=== PATIENT | female | born 1995 | race Caucasian/White ===

== ENCOUNTER → 2022-07-27 11:24 | Outpatient (BNVA) | payer OTHER, SELFPAY | PROVIDERS: Visit Provider Internal Medicine | DX: R76.8 Other specified abnormal immunological findings in serum (principal); R53.83 Other fatigue; G47.26 Circadian rhythm sleep disorder, shift work type; M25.50 Pain in unspecified joint | CPT/HCPCS: 80053; 81001; 82533; 82550; 83516; 83735; 84100; 84443; 84550; 85025; 85651; 86003; 86008; 86140; 86160; 86162; 86200; 86235; 86255; 86376; 86431; 86704; 86803; 87340 ==

== ENCOUNTER 2023-10-16 07:13 | Emergency (ER) | payer SELFPAY ==
--- NOTE | 2023-10-16 07:19 | W.ED.LOWEXIN ---
HPI - Extremity Injury (Lower) General: Chief Complaint: Extremity Problem,Nontraumatic Stated Complaint: Leg cramps Time Seen by Provider: 10/16/23 07:18 Source: patient Mode of arrival: ambulatory History of Present Illness: 28-year-old female presents emergency room complaining of leg cramps particularly in her left calf. She is on hydrochlorothiazide she does take potassium supplements as well. She is not recently changed or adjusted any of her medications. No history of DVT. No history of lumbar radiculopathy. Secondarily patient is also complaining of some vaginal discharge and dysuria has been going on for couple of weeks. She has previously had a salpingectomy. She states it was more extensive than typical tubal ligation but that she did not have a previous tubal abscess or ectopic . MD complaint: leg injury Review of Systems Const: Denies: fever(s) or chills Card: Denies: chest pain Resp: Denies: dyspnea GI: Denies: abdominal pain : Denies: dysuria, urinary frequency or urinary urgency Musc: Denies: neck pain or back pain Skin/Breast: Denies: rash PFSH ED PFSH: Medical History ROSALIA positive Social History Smoking and tobacco/nicotine status: never used tobacco/nicotine Alcohol intake: current Physical Exam Const: COMMON NORMALS: no acute distress GENERAL APPEARANCE: cooperative and comfortable ORIENTATION/CONSCIOUSNESS: Yes awake, Yes oriented to person, Yes oriented to place and Yes oriented to time HENMT: COMMON NORMALS: normocephalic, atraumatic and hearing grossly normal bilaterally HEAD & SCALP: normocephalic and atraumatic Resp: COMMON NORMALS: normal respiratory effort, No retractions, No use of accessory muscles and clear to auscultation bilaterally AUSCULTATION: clear to auscultation bilaterally Cardio: COMMON NORMALS: regular rate, regular rhythm and No murmurs present (Cardio) RATE: regular rate RHYTHM: regular rhythm GI: COMMON NORMALS: Soft to palpation and No hepatosplenomegaly present AUSCULTATION: Yes normoactive bowel sounds PALPATION: Yes Soft to palpation, No Tenderness to palpation present (GI), No Guarding due to palpation present (GI) and Yes No hepatosplenomegaly present Extremity: COMMON NORMALS: normal to inspection, capillary refill normal, no clubbing, cyanosis or edema, no calf tenderness and no pedal edema Neuro: SENSORIUM/ORIENTATION: Yes oriented to person, Yes oriented to place and Yes oriented to time Skin: COMMON NORMALS: no rashes or lesions noted GENERAL SKIN EXAM: no rashes or lesions noted Course Vital Signs: Vital signs: Vital Signs Temperature 98.1 F 10/16/23 07:48 Pulse Rate 85 10/16/23 07:48 Respiratory Rate 15 10/16/23 07:48 Blood Pressure 164/110 10/16/23 07:48 Pulse Oximetry 100 10/16/23 07:48 Oxygen Delivery Me thod Room Air 10/16/23 07:48 MDM - Extremity Injury (Lower) Medical Decision Making CBC and CMP did not show significant abnormality. Exam is unremarkable. Wet mount shows clue cells and trichomonas treated with metronidazole. She also has some evidence of cystitis. Will start her on Bactrim as well. 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 Medical Records I reviewed the patient's medical records. Lab Data I reviewed the patient's lab results. 10/16/23 07:32 10/16/23 07:32 Laboratory Results WBC 9.47 10^3/uL (3.29-11.43) 10/16/23 07:32 RBC 4.52 10^6/uL (3.85-5.65) 10/16/23 07:32 Hgb 13.70 g/dL (11.27-16.99) 10/16/23 07:32 Hct 41.3 % (36-47) 10/16/23 07:32 MCV 91.4 fl (85-98) 10/16/23 07:32 MCH 30.3 pg (27-33) 10/16/23 07:32 MCHC 33.2 g/dL (30-55) 10/16/23 07:32 RDW 11.6 % (12.1-15.1) L 10/16/23 07:32 Plt Count 287 10^3/cmm (157-399) 10/16/23 07:32 MPV 9.5 fL (7.4-10.4) 10/16/23 07:32 Neut % (Auto) 58.2 % 10/16/23 07:32 Lymph % (Auto) 34.5 % 10/16/23 07:32 [place] % (Auto) 6.1 % 10/16/23 07:32 Eos % (Auto) 0.4 % 10/16/23 07:32 Baso % (Auto) 0.6 % 10/16/23 07:32 Neut # (Auto) 5.50 10^3/uL (1.8-7.7) 10/16/23 07:32 Lymph # (Auto) 3.3 10^3/uL (0.8-4.8) 10/16/23 07:32 [place] # (Auto) 0.6 10^3/uL (0.2-0.9) 10/16/23 07:32 Eos # (Auto) 0.0 10^3/uL (0.0-0.8) 10/16/23 07:32 Baso # (Auto) 0.1 10^3/uL (0.0-0.1) 10/16/23 07:32 Nucleated RBC % (auto) 0 % 10/16/23 07:32 Nucleated RBCs # 0.0 /100WBC 10/16/23 07:32 Sodium 136 mmol/L (136-145) 10/16/23 07:32 Potassium 3.8 mmol/L (3.5-5.1) 10/16/23 07:32 Chloride 103 mmol/L (98-107) 10/16/23 07:32 Carbon Dioxide 21 mmol/L (22-29) L 10/16/23 07:32 Anion Gap 15.8 (5-19) 10/16/23 07:32 BUN 15 mg/dL (6-20) 10/16/23 07:32 Creatinine 0.7 mg/dL (0.5-0.9) 10/16/23 07:32 GFR Calculation 98.9 mL/min (90-130) 10/16/23 07:32 Glucose 93 mg/dL (65-115) 10/16/23 07:32 Calculated Osmolality 283 mOsm/kg (285-295) L 10/16/23 07:32 Calcium 8.9 mg/dL (8.5-10.5) 10/16/23 07:32 Magnesium 2.0 mg/dL (1.7-2.3) 10/16/23 07:32 Total Bilirubin 0.3 mg/dL (0.15-1.2) 10/16/23 07:32 AST 15 U/L (0-32) 10/16/23 07:32 ALT 18 U/L (0-33) 10/16/23 07:32 Alkaline Phosphatase 73 U/L (35-105) 10/16/23 07:32 Total Protein 7.5 g/dL (6.6-8.7) 10/16/23 07:32 Albumin 4.2 g/dL (3.5-5.2) 10/16/23 07:32 Globulin 3.3 g/dL (1.3-4.6) 10/16/23 07:32 HCG, Qual Negative (Negative) 10/16/23 07:32 Urine Color Yellow (Yellow) 10/16/23 08:03 Urine Appearance Clear (CLEAR) 10/16/23 08:03 Urine pH 7 (5-7) 10/16/23 08:03 Ur Specific [place] 1.020 (1.005-1.030) 10/16/23 08:03 Urine Protein Neg (Negative) 10/16/23 08:03 Urine Glucose (UA) Norm (Normal) 10/16/23 08:03 Urine Ketones Negative (Negative) 10/16/23 08:03 Urine Blood Neg (Negative) 10/16/23 08:03 Urine Nitrate Negative (Negative) 10/16/23 08:03 Urine Bilirubin Neg (Negative) 10/16/23 08:03 Urine Urobilinogen Norm mg/dL (Negative) 10/16/23 08:03 Ur Leukocyte Esterase 2+ (Negative) H 10/16/23 08:03 Urine RBC None /hpf (0-2) 10/16/23 08:03 Urine WBC 5-10 /hpf (0-5) H 10/16/23 08:03 Ur Squamous Epith Cells Rare /hpf (0-5) 10/16/23 08:03 Amorphous Sediment Not Reportable 10/16/23 08:03 Urine Bacteria 1+ /hpf (NONE) H 10/16/23 08:03 Urine Mucus Trace /hpf 10/16/23 08:03 No radiology studies performed this visit Discharge Plan Discharge Patient Disposition: Home Clinical Impression: Cramp in lower leg, Trichomonal vaginitis Condition: Stable Prescriptions: New metronidazole 500 mg tablet 500 mg PO BID 10 Days Qty: 20 0RF Bactrim DS 800-160 mg tablet 1 tab PO BID 10 Days Qty: 20 0RF No Action topiramate 50 mg tablet 50 mg PO ONCE cholecalciferol (vitamin D3) 125 mcg (5,000 unit) capsule 125 mcg PO DAILY hydrochlorothiazide 12.5 mg tablet 12.5 mg PO DAILY vitamin B complex Tablet 1 tab PO DAILY biotin 1 mg capsule 1 mg PO DAILY sumatriptan succinate [Imitrex] 50 mg tablet 50 mg PO Q2H PRN (Reason: Migraine Headache) Rx Instructions: do not exceed 4 doses per 24 hrs Cymbalta 60 mg Capsule,Delayed Release(Dr/Ec) 60 mg PO BID potassium chloride 20 mEq Tablet Extended Release 20 meq PO DAILY Discharge Orders: Discharge ED (Routine); Ordered 10/16/23 Ordered By: Haris Phillip Discharge Diet: Usual diet Discharge Activity: Increase activity as tolerated Patient Instructions: Opioid Safety, Pain Management Activity Restrictions/Additional Instructions: Thank you for choosing [facility] for your healthcare needs today. Please realize this is an emergency room and that we are providing you with a medical screening exam and this may not be complete and all inclusive of all the testing and or work up that you may need to determine your ailment or severity of your illness. It is very important that you follow up as instructed or that you return to the Emergency Department should you have concerns or if your condition changes or worsens in any way. You are seen today for complaints of leg cramping your electrolytes were normal there is no significant abnormality increase fluid intake you can use heating pads to relieve as needed Tylenol or ibuprofen as needed. He had also complained of vaginal discharge and discomfort while urinating. Urinalysis showed a mild cystitis the wet mount done in the emergency room showed trichomonas. You are given metronidazole and Bactrim to treat these. Follow-up with your wildlife science professor. Coding Level of Care Code ED Business Objects Report Developer for Madelyn Viera
[2023-10-16 07:48] VITALS: BP 164/110; PULSE 85; RESP 15; TEMP 36.7; O2SAT 100
[2023-10-16 07:50] LABS: Basophils # 0.1 10^3/uL (0.0-0.1); Basophils % 0.6 %; Eosinophils % 0.4 %; Hematocrit 41.3 % (36-47); Lymphocytes # 3.3 10^3/uL (0.8-4.8); Lymphocytes % 34.5 %; Mean Corpuscular HGB Conc 33.2 g/dL (30-55); Mean Corpuscular Hemoglobin 30.3 pg (27-33); Mean Corpuscular Volume 91.4 fl (85-98); Mean Platelet Volume 9.5 fL (7.4-10.4); Monocytes # 0.6 10^3/uL (0.2-0.9); Monocytes % 6.1 %; Neutrophils % 58.2 %; Nucleated Red Blood Cells % 0 %; Platelet Count 287 10^3/cmm (157-399); Red Blood Count 4.52 10^6/uL (3.85-5.65); Red Cell Distribution Width 11.6 % (12.1-15.1); White Blood Count 9.47 10^3/uL (3.29-11.43)
[2023-10-16 08:08] LABS: Alanine Aminotransferase 18 U/L (0-33); Albumin Level 4.2 g/dL (3.5-5.2); Alkaline Phosphatase 73 U/L (35-105); Aspartate Amino Transferase 15 U/L (0-32); Blood Urea Nitrogen 15 mg/dL (6-20); Calcium 8.9 mg/dL (8.5-10.5); Carbon Dioxide 21 mmol/L (22-29); Chloride 103 mmol/L (98-107); Creatinine Clr Calc Pharmacy 135.2784; Globulin 3.3 g/dL (1.3-4.6); Glomerular Filtration Rate 98.9 mL/min (90-130); Glucose 93 mg/dL (65-115); Osmolality Calculated 283 mOsm/kg (285-295); Sodium 136 mmol/L (136-145); Total Bilirubin 0.3 mg/dL (0.15-1.2); Total Protein 7.5 g/dL (6.6-8.7)
[2023-10-16 08:12] LABS: Anion Gap 15.8 (5-19); Potassium 3.8 mmol/L (3.5-5.1)
[2023-10-16 08:19] LABS: HCG, Serum Qual Negative (Negative)
[2023-10-16 08:35] LABS: Add Urine Culture? No; Add Urine Microscopic? YES; Bacteria Urine 1+ /hpf; Bilirubin Urine Neg (Negative); Blood Urine Neg (Negative); Glucose Urine UA Norm (Normal); Ketones Urine Negative (Negative); Leukocyte Esterase Urine 2+ (Negative); Mucus Urine TRACE /hpf; Nitrate Urine Negative (Negative); Protein Urine Neg (Negative); Squamous Epithelial Cell Urine RARE /hpf (0-5); Urine Appearance Clear (CLEAR); Urine Color Yellow (Yellow); Urobilinogen Urine Norm (Negative); pH Urine 7 (5-7)
--- NOTE | 2023-10-16 10:20 | PC.NURSE ---
Called patient's prescriptions to [facility] pharmacy in [place] per patients request.
[2023-10-18 19:08] LABS: Chlamydia Trachomatis RNA TMA NOT DETECTED (NOT DETECTED); Neisseria Gonorrhoeae RNA, TMA NOT DETECTED (NOT DETECTED)
== END 2023-10-16 10:22 | disposition home or self-care (01) ==
PROVIDERS: Emergency Provider Family Medicine
DX: A59.01 Trichomonal vulvovaginitis (principal); R25.2 Cramp and spasm
CPT/HCPCS: 36415; 80053; 81001; 83735; 84703; 85025; 87210; 87491; 87591; 99283

== ENCOUNTER 2023-12-22 19:34 | Emergency (ER) | payer SELFPAY ==
[2023-12-22 19:41] VITALS: BP 149/99; PULSE 96; RESP 16; TEMP 36.9; O2SAT 98
--- NOTE | 2023-12-22 19:58 | ED.C_ITS ---
HPI - Psych General: Chief Complaint: Psychiatric Symptoms Stated Complaint: MHE Time Seen by Provider: 12/22/23 19:57 History of Present Illness: 28-year-old female comes in today for co mplaints of being out of her medication. Patient has been on medications Seroquel for treatment of her borderline personality disorder, PTSD, major depressive disorder, and general anxiety. Patient had previously been on 300 mg of Seroquel once daily. Patient believes that this medication is too strong and she sleeps most of the time when she takes it. Patient has been without the medication for the last 2 weeks tolerating it well until today when she became very upset with someone and felt extreme anger and had an outburst. Patient knows that this is because she has been without her medicine and feels that she needs to be back on her medication. Patient contacted her primary care office and they are setting her up an appointment follow-up with behavioral health but she does not believe that she can wait that long to restart her medicine. Patient is requesting to be restarted on her medicine at 100 mg/day. Patient denies suicidal or homicidal intent. Patient denies any other significant abnormalities. Review of Systems General: Reports: 10 or more systems reviewed and unremarkable except in HPI and below PFSH ED PFSH: Medical History ROSALIA positive Social History Smoking and tobacco/nicotine status: never used tobacco/nicotine Alcohol intake: current Physical Exam Const: COMMON NORMALS: alert HENMT: COMMON NORMALS: normocephalic HEAD & SCALP: normocephalic Neck/C-Spine: COMMON NORMALS: full ROM Resp: COMMON NORMALS: normal respiratory effort and clear to auscultation bilaterally AUSCULTATION: clear to auscultation bilaterally Cardio: COMMON NORMALS: regular rate RATE: regular rate GI: COMMON NORMALS: non-tender : COMMON NORMALS: Yes no CVA tenderness BLADDER/KIDNEY EXAM: Yes no CVA tenderness Back/Pelvis: COMMON NORMALS: no CVA tenderness Extremity: COMMON NORMALS: normal to inspection Neuro: SENSORIUM/ORIENTATION: Yes alert Skin: COMMON NORMALS: turgor normal GENERAL SKIN EXAM: turgor normal Course Vital Signs: Vital signs: Vital Signs Temperature 98.5 F 12/22/23 19:41 Pulse Rate 96 12/22/23 19:41 Respiratory Rate 16 12/22/23 19:41 Blood Pressure 149/99 12/22/23 19:41 Pulse Oximetry 98 12/22/23 19:41 Oxygen Delivery Me thod Room Air 12/22/23 19:41 MDM - Psych Medical Decision Making 28-year-old female comes in today for complaints of increased irritability and anger. Patient been without her Seroquel for 2 weeks. Patient is being restarted on her medication but would like to try a lower dose. On exam patient is cooperative and is in no distress. Patient denies any homicidal or suicidal thoughts. Vital signs are normal. Differential diagnosis includes but not limited to major depressive disorder, borderline personality disorder, PTSD, anxiety disorder, acute psychosis, suicidal ideation or homicidal ideation. Patient is no acute distress at this time. Patient does not wish to be admitted to the psychiatric unit at this time. I believe we can restart the patient on her Seroquel and have her follow-up with behavioral health for further treatment and evaluation at this time. Patient will be started back on the Seroquel at 100 mg/day. Prescription was sent to the pharmacy. And a case management request to behavioral health. Patient reported understanding of care plan need for follow-up or return to the ER for worsening symptoms. No radiology studies performed this visit Discharge Plan Discharge Patient Disposition: Home Clinical Impression: Chronic post-traumatic stress disorder (PTSD), History of borderline personality disorder MDD (major depressive disorder) Qualifiers: Major depression recurrence: unspecified whether recurrent Active/Remission status: remission status unspecified Qualified Code(s): F32.9 - Major depressive disorder, single episode, unspecified Anxiety disorder Qualifiers: Anxiety disorder type: unspecified anxiety disorder Qualified Code(s): F41.9 - Anxiety disorder, unspecified Condition: Stable Prescriptions: New quetiapine 100 mg tablet 100 mg PO DAILY 30 Days Qty: 30 1RF No Action topiramate 50 mg tablet 50 mg PO ONCE cholecalciferol (vitamin D3) 125 mcg (5,000 unit) capsule 125 mcg PO DAILY hydrochlorothiazide 12.5 mg tablet 12.5 mg PO DAILY vitamin B complex Tablet 1 tab PO DAILY biotin 1 mg capsule 1 mg PO DAILY sumatriptan succinate [Imitrex] 50 mg tablet 50 mg PO Q2H PRN (Reason: Migraine Headache) Rx Instructions: do not exceed 4 doses per 24 hrs Cymbalta 60 mg Capsule,Delayed Release(Dr/Ec) 60 mg PO BID potassium chloride 20 mEq Tablet Extended Release 20 meq PO DAILY Discharge Orders: Discharge ED (Routine); Ordered 12/22/23 Ordered By: Bari Ortega Discharge Diet: Usual diet Discharge Activity: Increase activity as tolerated Patient Instructions: Depression (ED) Activity Restrictions/Additional Instructions: Continue with medications as directed. Follow-up with primary care as needed. Case management will contact you regarding follow-up with behavioral health to establish care. Return to ER for worsening symptoms or new concerns. Coding Level of Care Code ED Tool Turret Lathe Set Up Operator for Madelyn Viera
[2023-12-22] MEDS: quetiapine 100 mg Tablet PO (20:32)
--- NOTE | 2023-12-23 08:16 | DCPLANNER ---
messaged [facility] scheduling for er f/u
== END 2023-12-22 21:09 | disposition home or self-care (01) ==
PROVIDERS: Emergency Provider Nurse Practitioner Family
DX: Z76.0 Encounter for issue of repeat prescription (principal); F43.12 Post-traumatic stress disorder, chronic; F60.3 Borderline personality disorder; F32.9 Major depressive disorder, single episode, unspecified; F41.9 Anxiety disorder, unspecified
CPT/HCPCS: 99283

== ENCOUNTER 2024-07-19 14:54 | Emergency (ER) | payer SELFPAY ==
[2024-07-19 14:59] VITALS: BP 128/90; PULSE 91; RESP 16; TEMP 36.6; O2SAT 98; BMI 41.3
[2024-07-19 15:23] LABS: Rapid Strep A Test Negative (Negative)
[2024-07-19 15:50] LABS: Covid PCR NEGATIVE (Negative); Influenza A NEGATIVE (Negative); Influenza B NEGATIVE (Negative)
[2024-07-19 15:51] LABS: Respiratory Syncytial Virus Ce POSITIVE (Negative)
[2024-07-19] MEDS: dexamethasone 10 mg/mL INJ IM (18:21)
[2024-07-19 18:22] VITALS: BP 128/90; PULSE 90; O2SAT 98
--- NOTE | 2024-07-19 18:54 | ED_ITS ---
HPI - URI/Sore Throat General: Chief Complaint: Upper Respiratory Infection Stated Complaint: sore throat/ conjestion Time Seen by Provider: 07/19/24 15:12 Source: patient Mode of arrival: ambulatory Limitations: no limitations History of Present Illness: Patient is a 28-year-old female who presents to the emergency department complaining of fever onset past couple of days. 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 Reporting some pleuritic chest pain, cough, sore throat, congestion, and rhinorrhea. Denies any pertinent past medical history. SpO2 98% on room air. Rest of her vitals normal, no fever at this time. MD elicited complaint: fever Onset (ago): day(s) Severity: moderate Associated symptoms: Reports fever(s) and nasal congestion; Deny abdominal pain, chills, chest pain, diarrhea, ear or mastoid pain, headache(s), nausea or vomiting Treatments prior to arrival: acetaminophen and ibuprofen Related Data Home Medications Medication Instructions Recorded Confirmed biotin 1 mg capsule 1 mg PO DAILY 09/30/22 12/20/23 cholecalciferol (vitamin D3) 125 125 mcg PO DAILY 09/30/22 12/20/23 mcg (5,000 unit) capsule hydrochlorothiazide 12.5 mg tablet 12.5 mg PO DAILY 09/30/22 12/20/23 sumatriptan succinate 50 mg tablet 50 mg PO Q2H PRN Migraine Headache 09/30/22 12/20/23 (Imitrex) topiramate 50 mg tablet 50 mg PO ONCE 09/30/22 12/20/23 vitamin B complex 1 tab PO DAILY 09/30/22 12/20/23 duloxetine 60 mg capsule,delayed 60 mg PO BID 10/16/23 12/20/23 release (Cymbalta) potassium chloride 20 mEq 20 meq PO DAILY 10/16/23 12/20/23 tablet,extended release Previous Rx's Medication Instructions Recorded quetiapine 100 mg tablet 100 mg PO DAILY 30 days #30 tabs 12/22/23 prednisone 20 mg tablet 40 mg (2 x 20 mg) PO ONCE 5 days 07/19/24 #10 tabs Allergies Allergy/AdvReac Type Severity Reaction Status Date / Time amoxicillin Allergy Severe ADR-Abdominal Verified 12/22/23 19:50 Pain Penicillins Allergy Severe ADR-Vomitin Verified 12/22/23 19:50 g latex Allergy ALGY-Rash Verified 12/22/23 19:50 lavender (Lavandula Allergy ALGY-Anaphy Verified 12/22/23 19:50 angustifolia) laxis Review of Systems General: Reports: 10 or more systems reviewed and unremarkable except in HPI and below Const: Reports: fever(s); Denies: chills or fatigue Eyes: Denies: change in vision ENMT: Reports: throat pain, nasal discharge and nasal congestion; Denies: ear or mastoid pain Card: Denies: chest pain, palpitations, swelling of feet/ankles or lightheadedness Resp: Reports: non-productive cough and pain on inspiration; Denies: dyspnea, productive cough or wheezing GI: Denies: abdominal pain, nausea, vomiting, diarrhea or constipation : Denies: flank pain, difficulty voiding, dysuria or urinary frequency Musc: Denies: neck pain, back pain or joint pain Skin/Breast: Denies: rash Neuro: Denies: headache(s), numbness in extremities or weakness in extremities PFSH ED PFSH: Medical History ROSALIA positive Social History Smoking and tobacco/nicotine status: never used tobacco/nicotine Alcohol intake: current Physical Exam Const: COMMON NORMALS: no acute distress and healthy appearing GENERAL APPEARANCE: cooperative, comfortable and well developed HENMT: COMMON NORMALS: normocephalic, atraumatic, hearing grossly normal bilaterally, external ears normal, EAC's normal, TM's normal bilaterally, Normal external nose present and Normal nasal mucous membranes and turbinates present HEAD & SCALP: normal to inspection, normocephalic and atraumatic FACE & S INUS: normal facial exam and sinuses nontender NOSE: Normal external nose present, Normal nares present, No nasal polyps present and Normal nasal mucous membranes and turbinates present EXTERNAL EAR: Yes external ears normal EXTERNAL AUDITORY CANAL: EAC's normal TYMPANIC MEMBRANE: TM's normal bilaterally MOUTH: Normal oral and palatal mucosa present THROAT: posterior oropharynx normal and tonsils normal Eye: COMMON NORMALS: EOMs intact bilaterally, conjunctivae normal and normal visual valle by confrontation GENERAL EYE: appearance normal, both eyes and all related structures CONJUNCTIVA: Yes conjunctivae normal Neck/C-Spine: COMMON NORMALS: full ROM, no lymphadenopathy, supple and no meningeal signs GENERAL: Yes normal visual inspection Chest: COMMONS NORMALS: normal inspection of the chest Resp: COMMON NORMALS: normal respiratory effort and clear to auscultation bilaterally EFFORT & INSPECTION: Yes able to speak in complete sentences AUSCULTATION: clear to auscultation bilaterally Cardio: COMMON NORMALS: regular rate, regular rhythm, S1 normal heart sound present and S2 normal heart sound present RATE: regular rate RHYTHM: regular rhythm HEART SOUNDS: S1 normal heart sound present, S2 normal heart sound present, no gallops, no murmurs and no rubs Extremity: COMMON NORMALS: normal to inspection, full ROM and capillary refill normal Neuro: MENINGEAL SIGNS: Yes no meningeal signs Skin: COMMON NORMALS: no rashes or lesions noted GENERAL SKIN EXAM: no rashes or lesions noted Course Vital Signs: Vital signs: Vital Signs Temperature 97.8 F 07/19/24 14:59 Pulse Rate 90 07/19/24 18:22 Respiratory Rate 16 07/19/24 14:59 Blood Pressure 128/90 07/19/24 18:22 Pulse Oximetry 98 07/19/24 18:22 Oxygen Delivery Me thod Room Air 07/19/24 14:59 MDM - URI/Sore Throat Medical Decision Making Patient tested positive for RSV after reporting positive exposure. Instructed her to treat conservatively, follow-up with primary care and return with any new or worsening. She agrees with this plan. Start her on prednisone. Lab Data Laboratory Results Coronavirus (PCR) Negative (Negative) 07/19/24 15:06 Influenza A (PCR) Negative (Negative) 07/19/24 15:06 Influenza Type B (PCR) Negative (Negative) 07/19/24 15:06 RSV (PCR) Positive (Negative) A 07/19/24 15:06 Group A Strep Rapid Negative (Negative) 07/19/24 15:06 No radiology studies performed this visit Discharge Plan Discharge Patient Disposition: Home Clinical Impression: RSV (respiratory syncytial virus infection) Condition: Stable Prescriptions: New prednisone 20 mg tablet 40 mg PO ONCE 5 Days Qty: 10 0RF No Action topiramate 50 mg tablet 50 mg PO ONCE cholecalciferol (vitamin D3) 125 mcg (5,000 unit) capsule 125 mcg PO DAILY hydrochlorothiazide 12.5 mg tablet 12.5 mg PO DAILY vitamin B complex Tablet 1 tab PO DAILY biotin 1 mg capsule 1 mg PO DAILY sumatriptan succinate [Imitrex] 50 mg tablet 50 mg PO Q2H PRN (Reason: Migraine Headache) Rx Instructions: do not exceed 4 doses per 24 hrs Cymbalta 60 mg Capsule,Delayed Release(Dr/Ec) 60 mg PO BID potassium chloride 20 mEq Tablet Extended Release 20 meq PO DAILY quetiapine 100 mg tablet 100 mg PO DAILY 30 Days Qty: 30 1RF Discharge Orders: Discharge ED (Routine); Ordered 07/19/24 Ordered By: Jake Paredes Patient Instructions: RSV (Respiratory Syncytial Virus) Infection (ED) Activity Restrictions/Additional Instructions: You have been diagnosed with RSV. Ibuprofen and Tylenol for pain or fevers. Drink plenty of fluids. Prednisone as prescribed. Follow-up with primary care, return with any worsening breathing or other symptoms of concern. Stand Alone Forms: Work/School Release Coding Level of Care Code ED Medication Aide for Madelyn Viera
== END 2024-07-19 18:23 | disposition home or self-care (01) ==
PROVIDERS: Emergency Medicine; Emergency Provider Physician Assistant
DX: B33.8 Other specified viral diseases (principal); B97.4 Respiratory syncytial virus as the cause of diseases classified elsewhere; Z11.52 Encounter for screening for COVID-19
CPT/HCPCS: 87081; 87637; 87880; 96372; 99284; J1100

== ENCOUNTER 2024-09-28 00:28 | Emergency (ER) | payer SELFPAY ==
[2024-09-28 00:39] VITALS: BP 151/93; PULSE 79; RESP 14; TEMP 36.7; O2SAT 99; BMI 40.7
--- NOTE | 2024-09-28 01:09 | ED_ITS ---
HPI - Headache 2 General: Chief Complaint: Headache Stated Complaint: N/V,Cold chills, Sweating Time Seen by Provider: 09/28/24 01:03 History of Present Illness: 28-year-old female with a history of bobby trey who presents the emergency room with a headache that has not stopped. She says she had taken her abortive medications and that did not help. She says usually if she vomits a few times that will help as well. Is afraid she might have food poisoning or something because normally she will vomit a few times and the headache go away. She reports photophobia and phonophobia. Related Data Home Medications ?Medication ?Instructions ?Recorded ?Confirmed biotin 1 mg capsule 1 mg PO DAILY 09/30/2212/19 cholecalciferol (vitamin D3) 125 125 mcg PO DAILY 11/1712/20/23 mcg (5,000 unit) capsule hydrochlorothiazide 12.5 mg tablet 12.5 mg PO DAILY 12/20/23 sumatriptan succinate 50 mg tablet 50 mg PO Q2H PRN Mi graine Headache 09/30/22 12/20/23 (Imitrex) topiramate 50 mg tablet 50 mg PO ONCE 09/30/2212/19 vitamin B complex 1 tab PO DAILY 09/30/2211/27 duloxetine 60 mg capsule,delayed 60 mg PO BID 10/16/23 12/20/23 release (Cymbalta) potassium chloride 20 mEq 20 meq PO DAILY 10/16/23 tablet,extended release Previous Rx's ?Medication ?Instructions ?Recorded quetiapine 100 mg tablet 100 mg PO DAILY 30 days #30 tabs 12/22/23 diclofenac sodium 50 mg 50 mg PO BID PRN pain #14 ta bs 09/28/24 tablet,delayed release ondansetron 4 mg disintegrating 4 mg PO Q8H PRN nausea and 09/28/24 tablet vomiting #10 tabs Allergies Allergy/AdvReac Type Severity Reaction Status Date / Time amoxicillin Allergy Severe ADR-Abdominal Verified 12/22/23 19:50 Pain Penicillins Allergy Severe ADR-Vomitin Verified 12/22/23 19:50 g latex Allergy ALGY-Rash Verified 12/22/23 19:50 lavender (Lavandula Allergy ALGY-Anaphy Verified 12/22/23 19:50 angustifolia) laxis Review of Systems 2 Narrative: Constitutional symptoms: Negative except as documented in HPI. Skin symptoms: Negative except as documented in HPI. Eye symptoms: Negative except as documented in HPI. ENMT symptoms: Negative except as documented in HPI. Respiratory symptoms: Negative except as documented in HPI. Cardiovascular symptoms: Negative except as documented in HPI. Gastrointestinal symptoms: Negative except as documented in HPI. Genitourinary symptoms: Negative except as documented in HPI. Musculoskeletal symptoms: Negative except as documented in HPI. Neurologic symptoms: Negative except as documented in HPI. Psychiatric symptoms: Negative except as documented in HPI. Endocrine symptoms: Negative except as documented in HPI. PFSH ED 2 PFSH: Medical History ROSALIA positive Social History Smoking and tobacco/nicotine status: never used tobacco/nicotine Alcohol intake: current Female Reproductive History: Date of last menstrual period: 09/22/24 Physical Exam 2 Narrative: EXAM NARRATIVE: General: Alert, no acute distress. Skin: Warm, dry. Head: Normocephalic, atraumatic. Neck: Supple, trachea midline. Eye: Extraocular movements are intact. Ears, nose, mouth and throat: mucosa moist. Cardiovascular: Regular, Normal peripheral perfusion. Respiratory: Lungs are clear to auscultation, respirations are non-labored, breath sounds are equal, Symmetrical chest wall expansion. Gastrointestinal: Soft, Nontender, Non distended Musculoskeletal: Normal ROM, no deformity. Neurological: Alert and oriented, No focal neurological deficit observed. Psychiatric: Cooperative, appropriate mood & affect. Course 2 Vital Signs: Vital signs: Vital Signs Temperature 98.0 F 09/28/24 00:39 Pulse Rate 69 09/28/24 01:59 Respiratory Rate 18 09/28/24 01:59 Blood Pressure 151/93 09/28/24 00:39 Pulse Oximetry 99 09/28/24 01:59 Oxygen Delivery Me thod Room Air 09/28/24 00:39 MDM - Headache Medical Decision Making Medical decision making: Differential diagnosis for this patient presenting with severe headache including but not limited to and based on the above HPI, review of systems and physical exam: Intracranial hemorrhage, stroke, migraine, cluster headache, infections such as influenza, covid Orders placed to evaluate differential diagnosis based on the above differential, HPI and physical exam Lab Review: Laboratory results were reviewed and interpreted by myself the emergency room physician. No leukocytosis. No anemia. No renal failure. No flu or COVID. I reviewed the patient's medical record. Reexamination: Patient is sleeping well. I wake her up and she says she is feeling a little bit better. Patient remained stable. No increased work of breathing. No altered mental status. No focal motor deficits. Assessment and plan: Migraine headache - 50 mg IV Benadryl - 30 mg IV Toradol - 10 mg IV Reglan - 8 mg IV Zofran - 60 mg IV Norflex - Discharged home - Discussed plan with patient. Answered any questions. - Evaluation and treatment of this problem were appropriate in the emergency setting. Lab Data 09/28/24 01:51 09/28/24 01:51 Laboratory Results WBC 9.41 10^3/uL (3.29-11.43) 09/28/24 01:51 RBC 4.52 10^6/uL (3.85-5.65) 09/28/24 01:51 Hgb 13.60 g/dL (11.27-16.99) 09/28/24 01:51 Hct 40.0 % (36-47) 09/28/24 01:51 MCV 88.5 fl (85-98) 09/28/24 01:51 MCH 30.1 pg (27-33) 09/28/24 01:51 MCHC 34.0 g/dL (30-55) 09/28/24 01:51 RDW 11.5 % (12.1-15.1) L 09/28/24 01:51 Plt Count 294 10^3/cmm (157-399) 09/28/24 01:51 MPV 9.6 fL (7.4-10.4) 09/28/24 01:51 Neut % (Auto) 68.5 % 09/28/24 01:51 Lymph % (Auto) 24.9 % 09/28/24 01:51 [place] % (Auto) 5.6 % 09/28/24 01:51 Eos % (Auto) 0.3 % 09/28/24 01:51 Baso % (Auto) 0.4 % 09/28/24 01:51 Neut # (Auto) 6.44 10^3/uL (1.8-7.7) 09/28/24 01:51 Lymph # (Auto) 2.3 10^3/uL (0.8-4.8) 09/28/24 01:51 [place] # (Auto) 0.5 10^3/uL (0.2-0.9) 09/28/24 01:51 Eos # (Auto) 0.0 10^3/uL (0.0-0.8) 09/28/24 01:51 Baso # (Auto) 0.0 10^3/uL (0.0-0.1) 09/28/24 01:51 Nucleated RBC % (auto) 0 % 09/28/24 01:51 Nucleated RBCs # 0.0 /100WBC 09/28/24 01:51 Sodium 142 mmol/L (136-145) 09/28/24 01:51 Potassium 3.7 mmol/L (3.5-5.1) 09/28/24 01:51 Chloride 104 mmol/L (98-107) 09/28/24 01:51 Carbon Dioxide 27 mmol/L (22-29) 09/28/24 01:51 Anion Gap 14.7 (5-19) 09/28/24 01:51 BUN 11 mg/dL (6-20) 09/28/24 01:51 Creatinine 0.7 mg/dL (0.5-0.9) 09/28/24 01:51 GFR Calculation 98.9 mL/min (90-130) 09/28/24 01:51 Glucose 106 mg/dL (65-115) 09/28/24 01:51 Calculated Osmolality 294 mOsm/kg (285-295) 09/28/24 01:51 Calcium 9.0 mg/dL (8.5-10.5) 09/28/24 01:51 Total Bilirubin 0.4 mg/dL (0.15-1.2) 09/28/24 01:51 AST 15 U/L (0-32) 09/28/24 01:51 ALT 26 U/L (0-33) 09/28/24 01:51 Alkaline Phosphatase 73 U/L (35-105) 09/28/24 01:51 C-Reactive Protein 3.0 mg/L (0.0-4.9) 09/28/24 01:51 Total Protein 7.3 g/dL (6.6-8.7) 09/28/24 01:51 Albumin 4.2 g/dL (3.5-5.2) 09/28/24 01:51 Globulin 3.1 g/dL (1.3-4.6) 09/28/24 01:51 Urine RBC 0-2 /hpf (0-2) 09/28/24 01:31 Urine WBC 0-5 /hpf (0-5) 09/28/24 01:31 Ur Squamous Epith Cells 6-10 /hpf (0-5) 09/28/24 01:31 Amorphous Sediment Not Reportable 09/28/24 01:31 Urine Bacteria 1+ /hpf (NONE) H 09/28/24 01:31 Hyaline Casts 4.52 /lpf 09/28/24 01:31 Influenza A (PCR) Negative (Negative) 09/28/24 01:26 Influenza Type B (PCR) Negative (Negative) 09/28/24 01:26 RSV (PCR) Negative (Negative) 09/28/24 01:26 SARS-CoV-2 (PCR) Negative (Negative) 09/28/24 01:26 No radiology studies performed this visit Discharge Plan Discharge Patient Disposition: Home Clinical Impression: Migraine Condition: Stable Prescriptions: New diclofenac sodium 50 mg tablet,delayed release (DR/EC) 50 mg PO BID PRN (Reason: pain) Qty: 14 0RF ondansetron 4 mg tablet,disintegrating 4 mg PO Q8H PRN (Reason: nausea and vomiting) Qty: 10 0RF No Action topiramate 50 mg tablet 50 mg PO ONCE cholecalciferol (vitamin D3) 125 mcg (5,000 unit) capsule 125 mcg PO DAILY hydrochlorothiazide 12.5 mg tablet 12.5 mg PO DAILY vitamin B complex Tablet 1 tab PO DAILY biotin 1 mg capsule 1 mg PO DAILY sumatriptan succinate [Imitrex] 50 mg tablet 50 mg PO Q2H PRN (Reason: Migraine Headache) Rx Instructions: do not exceed 4 doses per 24 hrs Cymbalta 60 mg Capsule,Delayed Release(Dr/Ec) 60 mg PO BID potassium chloride 20 mEq Tablet Extended Release 20 meq PO DAILY quetiapine 100 mg tablet 100 mg PO DAILY 30 Days Qty: 30 1RF Discharge Orders: Discharge ED (Routine); Ordered 09/28/24 Ordered By: Ela Hitchcock Discharge Diet: Usual diet Discharge Activity: Increase activity as tolerated Patient Instructions: Migraine Headache (ED), Opioid Safety, Pain Management Activity Restrictions/Additional Instructions: Thank you for choosing [facility] for your healthcare needs today. Please realize this is an emergency room and that we are providing you with a medical screening exam and this may not be complete and all inclusive of all the testing and or work up that you may need to determine your ailment or severity of your illness. You have been screened and evaluated and felt safe for discharge. Health conditions do change or evolve sometimes and as such it is important that you follow up with your Primary Doctor to be re checked, 3-5 days is a general good time frame for follow up. You are always welcome to return to the ED for re assessment if your symptoms are worsening or you have new concerns Print Language: Tristanian Coding Level of Care Code ED Supervisor [employer] for Madelyn Viera
[2024-09-28] MEDS: ketorolac 30 mg/mL INJ IVP (01:41)
[2024-09-28] MEDS: ondansetron 2 mg/ML SDV 2 mL 8 MG IVP (01:41)
[2024-09-28] MEDS: orphenadrine 30 mg/mL Inj 2 mL 60 MG IVP (01:41)
[2024-09-28] MEDS: metoclopramide 5 mg/mL SDV 2 mL 10 MG IVP (01:41)
[2024-09-28] MEDS: diphenhydrAMINE 50 mg/mL SDV 1mL IVP (01:42)
[2024-09-28 01:59] VITALS: PULSE 69; RESP 18; O2SAT 99
[2024-09-28 02:05] LABS: Basophils % 0.4 %; Eosinophils % 0.3 %; Lymphocytes # 2.3 10^3/uL (0.8-4.8); Lymphocytes % 24.9 %; Mean Corpuscular Hemoglobin 30.1 pg (27-33); Mean Corpuscular Volume 88.5 fl (85-98); Mean Platelet Volume 9.6 fL (7.4-10.4); Monocytes # 0.5 10^3/uL (0.2-0.9); Monocytes % 5.6 %; Neutrophils # 6.44 10^3/uL (1.8-7.7); Neutrophils % 68.5 %; Nucleated Red Blood Cells % 0 %; Platelet Count 294 10^3/cmm (157-399); Red Blood Count 4.52 10^6/uL (3.85-5.65); Red Cell Distribution Width 11.5 % (12.1-15.1); White Blood Count 9.41 10^3/uL (3.29-11.43)
[2024-09-28 02:16] LABS: Influenza A NEGATIVE (Negative); Influenza B NEGATIVE (Negative); Respiratory Syncytial Virus Ce NEGATIVE (Negative); SARS-CoV-2 PCR NEGATIVE (Negative)
[2024-09-28 02:25] LABS: Bacteria Urine 1+ /hpf; Hyaline Casts Urine 4.52 /lpf; RBC Urine 0-2 /hpf (0-2); WBC Urine 0-5 /hpf (0-5)
[2024-09-28 02:26] LABS: Alanine Aminotransferase 26 U/L (0-33); Albumin Level 4.2 g/dL (3.5-5.2); Alkaline Phosphatase 73 U/L (35-105); Anion Gap 14.7 (5-19); Aspartate Amino Transferase 15 U/L (0-32); Blood Urea Nitrogen 11 mg/dL (6-20); Carbon Dioxide 27 mmol/L (22-29); Chloride 104 mmol/L (98-107); Creatinine Clr Calc Pharmacy 136.9767; Globulin 3.1 g/dL (1.3-4.6); Glomerular Filtration Rate 98.9 mL/min (90-130); Glucose 106 mg/dL (65-115); Osmolality Calculated 294 mOsm/kg (285-295); Potassium 3.7 mmol/L (3.5-5.1); Sodium 142 mmol/L (136-145); Total Bilirubin 0.4 mg/dL (0.15-1.2); Total Protein 7.3 g/dL (6.6-8.7)
[2024-09-28 02:34] LABS: Bilirubin Urine Neg (Negative); Blood Urine Neg (Negative); Glucose Urine UA Norm (Normal); Ketones Urine 1+ (Negative); Leukocyte Esterase Urine Negative (Negative); Nitrate Urine Negative (Negative); Protein Urine Neg (Negative); Urine Appearance Clear (CLEAR); Urine Color Yellow (Yellow); Urobilinogen Urine Neg (Negative); pH Urine 5 (5-7)
[2024-09-28 03:03] VITALS: BP 132/78; PULSE 70; O2SAT 95
== END 2024-09-28 03:04 | disposition home or self-care (01) ==
PROVIDERS: Emergency Provider Emergency Medicine
DX: G43.909 Migraine, unspecified, not intractable, without status migrainosus (principal); Z11.52 Encounter for screening for COVID-19
CPT/HCPCS: 80053; 81001; 85025; 86140; 87637; 96374; 96375; 99284; J1200; J1885; J2360; J2405; J2765

== ENCOUNTER 2024-11-24 11:31 | Emergency (ER) | payer SELFPAY ==
[2024-11-24 11:35] VITALS: BP 158/101; PULSE 100; RESP 17; TEMP 36.5; O2SAT 96; BMI 39.6
--- NOTE | 2024-11-24 11:35 | XR_ITS ---
WS: [id number] Left hip, AP and frog-leg views, 11/24/2024 Clinical Data: hip pain Comparison: None. Findings: No fractures or dislocations are seen. The left hip shows no erosion, sclerosis, narrowing or fragmentation of the left femoral head.. The soft tissues are not remarkable. The adjacent pelvis is normal. XR/XR hip LT 2-3V wo/w pel* [id number] Impression: Negative left hip.
[2024-11-24 12:59] LABS: Basophils % 0.5 %; Eosinophils % 0.5 %; Hematocrit 42.8 % (36-47); Mean Corpuscular HGB Conc 32.9 g/dL (30-55); Mean Corpuscular Hemoglobin 29.5 pg (27-33); Mean Corpuscular Volume 89.5 fl (85-98); Mean Platelet Volume 9.6 fL (7.4-10.4); Monocytes # 0.5 10^3/uL (0.2-0.9); Monocytes % 5.7 %; Neutrophils # 5.76 10^3/uL (1.8-7.7); Neutrophils % 68.9 %; Nucleated Red Blood Cells % 0 %; Platelet Count 265 10^3/cmm (157-399); Red Blood Count 4.78 10^6/uL (3.85-5.65); Red Cell Distribution Width 11.5 % (12.1-15.1); White Blood Count 8.36 10^3/uL (3.29-11.43)
[2024-11-24 13:12] LABS: HCG, Serum Qual Negative (Negative)
[2024-11-24 13:17] LABS: Alanine Aminotransferase 21 U/L (0-33); Albumin Level 4.2 g/dL (3.5-5.2); Alkaline Phosphatase 70 U/L (35-105); Anion Gap 18.2 (5-19); Aspartate Amino Transferase 16 U/L (0-32); Blood Urea Nitrogen 8 mg/dL (6-20); Calcium 9.3 mg/dL (8.5-10.5); Carbon Dioxide 23 mmol/L (22-29); Chloride 105 mmol/L (98-107); Creatinine Clr Calc Pharmacy 156.0108; Globulin 3.4 g/dL (1.3-4.6); Glomerular Filtration Rate 117.4 mL/min (90-130); Glucose 101 mg/dL (65-115); Lipase 18 U/L (13-60); Osmolality Calculated 292 mOsm/kg (285-295); Potassium 4.2 mmol/L (3.5-5.1); Sodium 142 mmol/L (136-145); Total Bilirubin 0.4 mg/dL (0.15-1.2); Total Protein 7.6 g/dL (6.6-8.7)
--- NOTE | 2024-11-24 13:40 | W.ED.ABDPA2 ---
HPI - Abdominal Pain General: Chief Complaint: Abdominal Pain Stated Complaint: lt hip pain Time Seen by Provider: 11/24/24 11:45 History of Present Illness: 29-year-old female presents emergency room complaining of right flank pain that radiates from her flank down into her groin and into her hip. Symptoms began a couple of hours ago. Is worse when she tries to walk she is noticed some frequency of urination as well no hematuria no history of kidney stones. She has had back issues in the past she does not have pain that radiates down the leg no weakness in the leg. Associated Symptoms: Denies chills, dysuria and fever(s) Related Data Previous Rx's ?Medication ?Instructions ?Recorded diclofenac sodium 75 mg 75 mg PO Q12H PRN pain #20 tabs 11/24/24 tablet,delayed release prednisone 20 mg tablet 20 mg PO TID #15 tabs 11/24/24 tizanidine 4 mg tablet 4 mg PO Q6H PRN muscle spasticity 11/24/24 #20 tabs Allergies Allergy/AdvReac Type Severity Reaction Status Date / Time amoxicillin Allergy Severe ADR-Abdominal Verified 12/22/23 19:50 Pain Penicillins Allergy Severe ADR-Vomitin Verified 12/22/23 19:50 g latex Allergy ALGY-Rash Verified 12/22/23 19:50 lavender (Lavandula Allergy ALGY-Anaphy Verified 12/22/23 19:50 angustifolia) laxis lorazepam (From Ativan) Allergy ADR-Agitate Verified 11/24/24 11:41 d Review of Systems Const: Denies: fever(s) or chills Card: Denies: chest pain Resp: Denies: dyspnea GI: Denies: abdominal pain : Denies: dysuria, urinary frequency or urinary urgency Musc: Denies: neck pain or back pain Skin/Breast: Denies: rash PFSH ED PFSH: Medical History ROSALIA positive Social History Smoking and tobacco/nicotine status: never used tobacco/nicotine Alcohol intake: current Physical Exam Const: COMMON NORMALS: no acute distress GENERAL APPEARANCE: cooperative and comfortable ORIENTATION/CONSCIOUSNESS: Yes awake, Yes oriented to person, Yes oriented to place and Yes oriented to time HENMT: COMMON NORMALS: normocephalic, atraumatic and hearing grossly normal bilaterally HEAD & SCALP: normocephalic and atraumatic Resp: COMMON NORMALS: normal respiratory effort, No retractions, No use of accessory muscles and clear to auscultation bilaterally AUSCULTATION: clear to auscultation bilaterally Cardio: COMMON NORMALS: regular rate, regular rhythm and No murmurs present (Cardio) RATE: regular rate RHYTHM: regular rhythm GI: COMMON NORMALS: Soft to palpation and No hepatosplenomegaly present AUSCULTATION: Yes normoactive bowel sounds PALPATION: Yes Soft to palpation, No Tenderness to palpation present (GI), No Guarding due to palpation present (GI) and Yes No hepatosplenomegaly present Extremity: COMMON NORMALS: normal to inspection, capillary refill normal, no clubbing, cyanosis or edema, no calf tenderness and no pedal edema Neuro: SENSORIUM/ORIENTATION: Yes oriented to person, Yes oriented to place and Yes oriented to time Skin: COMMON NORMALS: no rashes or lesions noted GENERAL SKIN EXAM: no rashes or lesions noted Course Vital Signs: Vital signs: Vital Signs Temperature 97.7 F 11/24/24 11:35 Pulse Rate 98 11/24/24 17:16 Respiratory Rate 15 11/24/24 16:05 Blood Pressure 138/82 11/24/24 17:16 Pulse Oximetry 99 11/24/24 17:16 Oxygen Delivery Me thod Room Air 11/24/24 11:35 MDM - Abdominal Pain Medical Decision Making And seems that most of her pain is actually coming from nerve impingement radiating into that area of suspected L3 nerve root. She does not have signs of cauda equina syndrome no fecal incontinence no urinary retention. She did have some mild hematuria which is not having a lot of strong urinary symptoms. She has stones within the kidney but no dilation of the ureters mention on the CT stone think she recently passed a kidney stone was not entirely impossible. When we do ambulate her after the CT she still has recreation of her symptoms. Discharge home treaters as her radicular back pain with diclofenac prednisone and tizanidine. Patient declined any other pain medications prefer not have any narcotics. If she has any change or worsening of symptoms or new symptoms return to the emergency room Medical Records I reviewed the patient's medical records. Lab Data I reviewed the patient's lab results. 11/24/24 12:52 11/24/24 12:52 Labs/Radiology: Radiology Impressions Hip/Pelvis X-Ray 11/24/24 11:35 Impression: Negative left hip. Abdomen/Pelvis CT 11/24/24 15:15 Impression: 1. Small bilateral nonobstructive renal calculi. 2. Negative for ureteral obstructing calculi. Laboratory Results WBC 8.36 10^3/uL (3.29-11.43) 11/24/24 12:52 RBC 4.78 10^6/uL (3.85-5.65) 11/24/24 12:52 Hgb 14.10 g/dL (11.27-16.99) 11/24/24 12:52 Hct 42.8 % (36-47) 11/24/24 12:52 MCV 89.5 fl (85-98) 11/24/24 12:52 MCH 29.5 pg (27-33) 11/24/24 12:52 MCHC 32.9 g/dL (30-55) 11/24/24 12:52 RDW 11.5 % (12.1-15.1) L 11/24/24 12:52 Plt Count 265 10^3/cmm (157-399) 11/24/24 12:52 MPV 9.6 fL (7.4-10.4) 11/24/24 12:52 Neut % (Auto) 68.9 % 11/24/24 12:52 Lymph % (Auto) 24.0 % 11/24/24 12:52 [place] % (Auto) 5.7 % 11/24/24 12:52 Eos % (Auto) 0.5 % 11/24/24 12:52 Baso % (Auto) 0.5 % 11/24/24 12:52 Neut # (Auto) 5.76 10^3/uL (1.8-7.7) 11/24/24 12:52 Lymph # (Auto) 2.0 10^3/uL (0.8-4.8) 11/24/24 12:52 [place] # (Auto) 0.5 10^3/uL (0.2-0.9) 11/24/24 12:52 Eos # (Auto) 0.0 10^3/uL (0.0-0.8) 11/24/24 12:52 Baso # (Auto) 0.0 10^3/uL (0.0-0.1) 11/24/24 12:52 Nucleated RBC % (auto) 0 % 11/24/24 12:52 Nucleated RBCs # 0.0 /100WBC 11/24/24 12:52 Sodium 142 mmol/L (136-145) 11/24/24 12:52 Potassium 4.2 mmol/L (3.5-5.1) 11/24/24 12:52 Chloride 105 mmol/L (98-107) 11/24/24 12:52 Carbon Dioxide 23 mmol/L (22-29) 11/24/24 12:52 Anion Gap 18.2 (5-19) 11/24/24 12:52 BUN 8 mg/dL (6-20) 11/24/24 12:52 Creatinine 0.6 mg/dL (0.5-0.9) 11/24/24 12:52 GFR Calculation 117.4 mL/min (90-130) 11/24/24 12:52 Glucose 101 mg/dL (65-115) 11/24/24 12:52 Calculated Osmolality 292 mOsm/kg (285-295) 11/24/24 12:52 Calcium 9.3 mg/dL (8.5-10.5) 11/24/24 12:52 Total Bilirubin 0.4 mg/dL (0.15-1.2) 11/24/24 12:52 AST 16 U/L (0-32) 11/24/24 12:52 ALT 21 U/L (0-33) 11/24/24 12:52 Alkaline Phosphatase 70 U/L (35-105) 11/24/24 12:52 Total Protein 7.6 g/dL (6.6-8.7) 11/24/24 12:52 Albumin 4.2 g/dL (3.5-5.2) 11/24/24 12:52 Globulin 3.4 g/dL (1.3-4.6) 11/24/24 12:52 Lipase 18 U/L (13-60) 11/24/24 12:52 HCG, Qual Negative (Negative) 11/24/24 12:52 Urine Color [place] (Yellow) A 11/24/24 14:30 Urine Appearance Cloudy (CLEAR) A 11/24/24 14:30 Urine pH 5.0 (5-7) 11/24/24 14:30 Ur Specific [place] 1.022 (1.005-1.030) 11/24/24 14:30 Urine Protein 2+ (Negative) A 11/24/24 14:30 Urine Glucose (UA) Negative (Normal) 11/24/24 14:30 Urine Ketones Trace (Negative) 11/24/24 14:30 Urine Blood 3+ (Negative) A 11/24/24 14:30 Urine Nitrate Negative (Negative) 11/24/24 14:30 Urine Bilirubin Negative (Negative) 11/24/24 14:30 Urine Urobilinogen 0.2 mg/dL (Negative) 11/24/24 14:30 Ur Leukocyte Esterase Trace (Negative) A 11/24/24 14:30 Urine RBC >100 /hpf (0-2) H 11/24/24 14:30 Urine WBC 6-10 /hpf (0-5) 11/24/24 14:30 Ur Squamous Epith Cells 0-5 /hpf (0-5) 11/24/24 14:30 Amorphous Sediment Not Reportable 11/24/24 14:30 Urine Bacteria None seen /hpf (NONE) 11/24/24 14:30 Hyaline Casts 6.20 /lpf 11/24/24 14:30 All radiology interpretation(s) finalized by discharge Discharge Plan Discharge Patient Disposition: Home Clinical Impression: Radicular low back pain Condition: Stable Prescriptions: New tizanidine 4 mg tablet 4 mg PO Q6H PRN (Reason: muscle spasticity) Qty: 20 0RF Rx Instructions: do not exceed 3 doses per 24 hrs prednisone 20 mg tablet 20 mg PO TID Qty: 15 0RF Rx Instructions: 1 p.o. 3 times daily x3 days, 1 p.o. twice daily x2 days, 1 p.o. daily x2 days diclofenac sodium 75 mg tablet,delayed release (DR/EC) 75 mg PO Q12H PRN (Reason: pain) Qty: 20 0RF Discharge Orders: Discharge ED (Routine); Ordered 11/24/24 Ordered By: Haris Phillip Discharge Diet: Usual diet Discharge Activity: Increase activity as tolerated Patient Instructions: Opioid Safety, Pain Management Activity Restrictions/Additional Instructions: Thank you for choosing [facility] for your healthcare needs today. It is very important that you follow up as instructed or that you return to the Emergency Department should you have concerns or if your condition changes or worsens in any way. You were seen in the emergency room with complaints of pain radiating into the flank and groin. He did have some blood in urine but there was no definitive sign of having passed a kidney stone. Your pain pattern is suggestive of nerve impingement. Passing a kidney stone is a potential cause as well. You are given pain medications as well as steroids. Recommend you follow-up with your primary care doctor if not improving you should strain your urine for now as well. Print Language: French Coding Level of Care Code ED Director Search for Madelyn Viera
[2024-11-24 14:39] VITALS: BP 159/86; PULSE 99; RESP 15; O2SAT 100
[2024-11-24 14:45] LABS: Bilirubin Urine Negative (Negative); Blood Urine 3+ (Negative); Glucose Urine UA Negative (Normal); Ketones Urine Trace (Negative); Leukocyte Esterase Urine Trace (Negative); Nitrate Urine Negative (Negative); Protein Urine 2+ (Negative); Specific Gravity, Urine 1.022 (1.005-1.030); Urine Appearance Cloudy (CLEAR); Urobilinogen Urine 0.2 mg/dL (Negative)
[2024-11-24 14:51] LABS: Add Urine Microscopic? YES; Bacteria Urine None Seen /hpf; RBC Urine >100 /hpf (0-2); Squamous Epithelial Cell Urine 0-5 /hpf (0-5)
[2024-11-24 14:52] LABS: Urine Color Orange (Yellow)
[2024-11-24 14:53] LABS: Add Urine Culture? Yes
--- NOTE | 2024-11-24 14:57 | PC.PHAR ---
Pt states she is not taking any medications at this time.
[2024-11-24] MEDS: ketorolac 30 mg/mL INJ IVP (14:58)
[2024-11-24] MEDS: orphenadrine 30 mg/mL Inj 2 mL 60 MG IVP (14:58)
[2024-11-24 15:00] VITALS: RESP 18; O2SAT 100
[2024-11-24] MEDS: morphine 4 mg/mL SDV 1 mL IVP ×2 (15:00→16:05)
[2024-11-24 15:01] VITALS: BP 141/99; PULSE 67; RESP 17; O2SAT 100
[2024-11-24] MEDS: dexamethasone 10 mg/mL INJ IVP (15:01)
--- NOTE | 2024-11-24 15:15 | CT_ITS ---
WS: [id number] CT scan of the abdomen and pelvis without Oral and IV contrast. Additional two- dimensional coronal and sagittal reconstruction was performed. 11/24/2024 Clinical Data: flank pain Comparison: None. DLP: 949.[address] scans at [facility] use at least one of these dose optimization techniques: automated exposure control; mA and/or kV adjustment per patient size (includes targeted exams where dose is matched to clinical indication); or iterative reconstruction. Findings: The lower lungs show no nodules, masses or effusions. The liver, spleen, adrenal glands and pancreas are normal. There are clips in the gallbladder fossa from a cholecystectomy The kidneys show small bilateral intrarenal calcifications. No obstruction is seen. The renal pelves are normal. No ureteral calculi are seen. The abdominal aorta is normal in size. No appendicitis or diverticulitis is seen. No abscess, adenopathy or mass is seen. The bladder is unremarkable. The uterus is normal. No inguinal hernia is seen. The bones of the lower thorax, lumbar spine, pelvis, and hips are normal. CT/CT kidney stone [id number] Impression: 1. Small bilateral nonobstructive renal calculi. 2. Negative for ureteral obstructing calculi.
[2024-11-24 16:05] VITALS: RESP 15; O2SAT 99
--- NOTE | 2024-11-24 16:44 | PC.NURSE ---
ambulated with pt from treatment room down hallway and back, pt is able to ambulate without issue but states she does have some returning pain in left side with ambulation
[2024-11-24 17:16] VITALS: BP 138/82; PULSE 98; O2SAT 99
== END 2024-11-24 17:17 | disposition home or self-care (01) ==
PROVIDERS: Emergency Medicine; Emergency Provider Family Medicine
DX: M54.16 Radiculopathy, lumbar region (principal)
CPT/HCPCS: 36415; 51798; 73502; 74176; 80053; 81001; 83690; 84703; 85025; 87086; 96374; 96375; 96376; 99285; J1100; J1885; J2270; J2360

== ENCOUNTER 2025-02-20 16:59 | Emergency (ER) | payer SELFPAY ==
[2025-02-20 17:07] VITALS: BP 165/81; PULSE 85; RESP 14; TEMP 36.4; O2SAT 99
--- NOTE | 2025-02-20 17:32 | W.ED.WOUNDLC ---
HPI - Wound/Laceration General: Chief Complaint: Wound/Laceration Stated Complaint: L index finger lac Time Seen by Provider: 02/20/25 17:14 History of Present Illness: 29-year-old female without medical issues presents to the emergency room with a cut to her left index finger, KARLIE Guerra, after she was getting a microblade out to utilize on her eyebrows and cut it on her distal left finger. This occurred just prior to arrival. The microblade was a clean blade. Last tetanus was 2017 Associated symptoms: Denies chills, fever(s), nausea or vomiting Related Data Previous Rx's ?Medication ?Instructions ?Recorded diclofenac sodium 75 mg 75 mg PO Q12H PRN pain #20 tabs 11/24/24 tablet,delayed release prednisone 20 mg tablet 20 mg PO TID #15 tabs 11/24/24 tizanidine 4 mg tablet 4 mg PO Q6H PRN muscle spasticity 11/24/24 #20 tabs cephalexin 500 mg capsule 500 mg PO BID 3 days #6 caps 02/20/25 Allergies Allergy/AdvReac Type Severity Reaction Status Date / Time amoxicillin Allergy Severe ADR-Abdominal Verified 02/20/25 17:10 Pain Penicillins Allergy Severe ADR-Vomitin Verified 02/20/25 17:10 g latex Allergy ALGY-Rash Verified 02/20/25 17:10 lavender (Lavandula Allergy ALGY-Anaphy Verified 02/20/25 17:10 angustifolia) laxis lorazepam (From Ativan) Allergy ADR-Agitate Verified 02/20/25 17:10 d Review of Systems Const: Denies: fever(s) or chills Eyes: Denies: change in vision or blurry vision ENMT: Denies: throat pain Resp: Denies: dyspnea, productive cough or non-productive cough GI: Denies: abdominal pain, nausea or vomiting : Denies: flank pain Musc: Reports: extremity pain, extremity swelling, joint pain, joint swelling and other (laceration left index finger); Denies: neck pain, back pain, joint redness, joint warmth or joint stiffness Neuro: Denies: headache(s), numbness in extremities, weakness in extremities, sensory changes or lack of coordination [facility] ED PFSH: Medical History (Updated 02/20/25 @ 18:13 by NALLELY Sidhu) ROSALIA positive Social History Smoking and tobacco/nicotine status: never used tobacco/nicotine Alcohol intake: current Physical Exam Const: COMMON NORMALS: no acute distress, average body habitus and patient oriented x3 HENMT: COMMON NORMALS: normocephalic and atraumatic HEAD & SCALP: normocephalic and atraumatic Chest: COMMONS NORMALS: normal inspection of the chest and normal palpation of entire chest wall Resp: COMMON NORMALS: normal respiratory effort and clear to auscultation bilaterally AUSCULTATION: clear to auscultation bilaterally Cardio: COMMON NORMALS: regular rate and regular rhythm RATE: regular rate RHYTHM: regular rhythm GI: COMMON NORMALS: Normal to inspection, nondistended, normoactive bowel sounds present, Soft to palpation, non-tender and No hepatosplenomegaly present PALPATION: Yes Soft to palpation and Yes No hepatosplenomegaly present : COMMON NORMALS: Yes no CVA tenderness BLADDER/KIDNEY EXAM: Yes no CVA tenderness Back/Pelvis: COMMON NORMALS: no CVA tenderness Extremity: COMMON NORMALS: full ROM and capillary refill normal LEFT UPPER EXTREMITY: Yes hand & digits Left hand and digits: Yes inspection (laceration), Yes palpation (pain), Yes ROM (full rom intact), Yes neurovascular exam (sensation intact) and Yes tendon exam (intact) Neuro: COMMON NORMALS: patient oriented x3 Psych: COMMON NORMALS: mental status grossly normal and Normal thought process present THOUGHT PROCESS: Normal thought process present Procedures Laceration Laceration 1: Site: hand (left index finger) Side (If applicable): left Size (cm): 3 Description: linear Depth: simple, single layer Local Anesthetic: lidocaine 1% Amount of anesthesia used (mL): 4 Pre-repair: wound explored, irrigated extensively and deep structures intact Skin layer closed with: nylon Size (cm): 4-0 Number of sutures: 3 Course Vital Signs: Vital signs: Vital Signs Temperature 97.6 F 02/20/25 17:07 Pulse Rate 85 02/20/25 17:07 Respiratory Rate 14 02/20/25 17:07 Blood Pressure 165/81 02/20/25 17:07 Pulse Oximetry 99 02/20/25 17:07 Oxygen Delivery Me thod Room Air 02/20/25 17:07 MDM - Wound/Laceration Medical Decision Making Patient is 29-year-old female that was getting ready to microblade her eyebrows, and sliced her DIP of left index finger, palmar side. He was given a tetanus shot. Her finger was numbed by digital block and tolerated well with 4 mL, and 3 sutures were placed in her DIP without incident. Questions answered to her satisfaction. Prophylactic Keflex sent to the pharmacy. Medical Records I reviewed the patient's medical records. Lab Data Radiology Impressions Finger X-Ray 02/20/25 17:34 IMPRESSION: No acute findings. All radiology interpretation(s) finalized by discharge Discharge Plan Discharge Patient Disposition: Home Clinical Impression: Laceration of left index finger Qualifiers: Encounter type: initial encounter Damage to nail status: without damage Foreign body presence: without foreign body Qualified Code(s): S61.211A - Laceration without foreign body of left index finger without damage to nail, initial encounter Condition: Stable Prescriptions: New cephalexin 500 mg capsule 500 mg PO BID 3 Days Qty: 6 0RF No Action tizanidine 4 mg tablet 4 mg PO Q6H PRN (Reason: muscle spasticity) Qty: 20 0RF Rx Instructions: do not exceed 3 doses per 24 hrs prednisone 20 mg tablet 20 mg PO TID Qty: 15 0RF Rx Instructions: 1 p.o. 3 times daily x3 days, 1 p.o. twice daily x2 days, 1 p.o. daily x2 days diclofenac sodium 75 mg tablet,delayed release (DR/EC) 75 mg PO Q12H PRN (Reason: pain) Qty: 20 0RF Discharge Orders: Discharge ED (Routine); Ordered 02/20/25 Ordered By: Eden Ro Discharge Diet: Usual diet Discharge Activity: Resume usual activity Patient Instructions: Finger Laceration (ED), Patient Portal & Syd Instructions Activity Restrictions/Additional Instructions: Wash daily with Dial soap Place antibiotic ointment on only for 24 hours then Vaseline. After 24 hours you may leave completely uncovered or cover when you are at work Antibiotics have been sent to the pharmacy. Use as directed. Consider probiotic daily or active culture yogurt to avoid infectious diarrhea Remove sutures in 10 days Tylenol and ibuprofen for pain Return to ED if you have increasing redness, increasing drainage, increasing pain, fever greater than 100.4 ?F Print Language: Yakut Coding Level of Care Code ED Residential Case Manager for Madelyn Viera
--- NOTE | 2025-02-20 17:34 | XRR_ITS ---
PROCEDURE INFORMATION: Exam: XR Left Finger(s) Exam date and time: 02/20/2025 5:34 PM Age: 29 years old Clinical indication: Injury or trauma; Other: Laceration; Left; Injury date: Today; Injury details: Cut on distal lt index finger from microblade TECHNIQUE: Imaging protocol: Radiologic exam of the left fingers. Views: Minimum 2 views. COMPARISON: No relevant prior studies available. FINDINGS: Bones/joints: Normal. Soft tissues: Normal. XR/XR finger LT min 2V [id number] IMPRESSION: No acute findings.
[2025-02-20] MEDS: tetanus-dipt-pertussis 0.5 mL SDV IM (17:59)
== END 2025-02-20 18:28 | disposition home or self-care (01) ==
PROVIDERS: Emergency Provider Physician Assistant
DX: S61.211A Laceration without foreign body of left index finger without damage to nail, initial encounter (principal); W26.8XXA Contact with other sharp object(s), not elsewhere classified, initial encounter
CPT/HCPCS: 12002; 73140; 90471; 90715; 99283; J9999